=== PATIENT | female | born 1985 | race Caucasian/White ===

== ENCOUNTER 2017-06-27 17:46 | Emergency (ER) | payer OTHER ==
--- NOTE | 2017-06-27 23:03 | ED ---
Tobi Wang Stephanie, scribed for Pretty Alfaro MD on 06/27/17 at 2303 . Substance Abuse/Use - HPI Summary HPI Summary: [facility]. She did heroin (past 5 months) and meth (1.5 years). They sent her here for detox. Symptoms include body aches. The pt last used meth and heroin at 13:00 today. - History Of Current Complaint Chief Complaint: EDSubstanceAbuse Stated Complaint: DETOX Time Seen by Provider: 06/27/17 22:32 Hx Obtained From: Patient Onset/Duration of Drug/ETOH Abuse: Hours Ingestion History: Type/Name Of Drug - meth and heroin Aggravating Factor(s): Nothing Alleviating Factor(s): Nothing - Allergies/Home Medications Allergies/Adverse Reactions: Allergies Allergy/AdvReac Type Severity Reaction Status Date / Time No Known Allergies Allergy Verified 07/30/12 20:17 PMH/Surg Hx/FS Hx/Imm Hx Endocrine/Hematology History: Denies: Hx Anticoagulant Therapy, Hx Diabetes, Hx Thyroid Disease Cardiovascular History: Denies: Hx Hypertension, Hx Pacemaker/ICD Respiratory History: Reports: Hx Asthma Denies: Hx Chronic Obstructive Pulmonary Disease (COPD) History: Denies: Hx Renal Disease Neurological History: Denies: Hx Dementia, Hx Seizures Psychiatric History: Denies: Hx Substance Abuse - Surgical History Surgery Procedure, Year, and Place: Appendectomy age 12-13 - Immunization History Date of Tetanus Vaccine: utd per pt Date of Influenza Vaccine: denies Infectious Disease History: No Infectious Disease History: Denies: Hx Hepatitis, Hx Human Immunodeficiency Virus (HIV), Traveled Outside the [place] in Last 30 Days - Family History Known Family History: Positive: Unknown - reviewed and non-contributory - Social History Occupation: Unemployed Lives: Alone Substance Use Type: Reports: Heroin, Other - methamphetamine Review of Systems Negative: Fever Positive: Myalgia All Other Systems Reviewed And Are Negative: Yes Physical Exam - Summary Physical Exam Summary: VITAL SIGNS: Reviewed. GENERAL: Patient is a well-developed and nourished FEMALE who is lying comfortable in the stretcher. Patient is not in any acute respiratory distress. HEAD AND FACE: No signs of trauma. No ecchymosis, hematomas or skull depressions. No sinus tenderness. EYES: PERRLA, EOMI x 2, No injected conjunctiva, no nystagmus. EARS: Hearing grossly intact. Ear canals and tympanic membranes are within normal limits. MOUTH: Oropharynx within normal limits. NECK: Supple, trachea is midline, no adenopathy, no JVD, no carotid bruit, no c- spine tenderness, neck with full ROM. CHEST: Symmetric, no tenderness at palpation LUNGS: Clear to auscultation bilaterally. No wheezing or crackles. CVS: Regular rate and rhythm, S1 and S2 present, no murmurs or gallops appreciated. ABDOMEN: Soft, non-tender. No signs of distention. No rebound no guarding, and no masses palpated. Bowel sounds are normal. EXTREMITIES: FROM in all major joints, no edema, no cyanosis or clubbing. NEURO: Alert and oriented x 3. No acute neurological deficits. Speech is normal and follows commands. SKIN: Dry and warm Triage Information Reviewed: Yes Vital Signs On Initial Exam: Initial Vitals Temp Pulse Resp BP Pulse Ox 97.1 F 66 18 104/68 100 06/27/17 17:56 06/27/17 17:56 06/27/17 17:56 06/27/17 17:56 06/27/17 17:56 Vital Signs Reviewed: Yes Diagnostics - Vital Signs Vital Signs Temp Pulse Resp BP Pulse Ox 06/27/17 21:58 97.7 F 67 18 102/62 100 06/27/17 19:35 97.4 F 73 16 116/61 100 06/27/17 17:56 97.1 F 66 18 104/68 100 - Laboratory Lab Statement: Any lab studies that have been ordered have been reviewed, and results considered in the medical decision making process. Course/Dx - Course Course Of Treatment: The pt is a 31 y/o F that uses meth and heroin. Last used 13:00 today. Pt has no signs and symptoms of withdrawal. She has normal vital signs, no diaphoresis, no tremors. The pt is discharged home. - Diagnoses Provider Diagnoses: Substance abuse Discharge - Discharge Plan Condition: Stable Disposition: HOME Patient Education Materials: Narcotic Abuse (ED) Referrals: [facility], [Primary Care Provider] - 3 Days Additional Instructions: RETURN TO EMERGENCY DEPARTMENT FOR ANY NEW OR WORSENING SYMPTOMS The documentation as recorded by the Tobi salas Stephanie accurately reflects the service I personally performed and the decisions made by Dominic quiroz Abdul, MD.
[2017-06-27 23:38] VITALS: BP 131/65
== END 2017-06-27 23:33 | disposition home or self-care (01) ==
LOC: ED 17:46
DX: F15.10 Other stimulant abuse, uncomplicated (principal); F11.10 Opioid abuse, uncomplicated
CPT/HCPCS: 99282